=== PATIENT | male | born 1980 | race Caucasian/White ===

== ENCOUNTER 2021-04-01 16:03 | Outpatient (CLI) | payer OTHER | END 2021-04-01 16:04 | disposition home or self-care (01) | LOC: BICCT 16:03 | PROVIDERS: ATTEND Family Medicine | DX: E78.5 Hyperlipidemia, unspecified (principal); E78.00 Pure hypercholesterolemia, unspecified | CPT/HCPCS: 75571 ==

== ENCOUNTER 2021-12-26 08:02 | Outpatient (CLI) | payer OTHER | END 2021-12-26 08:03 | disposition home or self-care (01) | LOC: LABBT 08:02 | PROVIDERS: ATTEND Family Medicine | DX: Z01.810 Encounter for preprocedural cardiovascular examination (principal) | CPT/HCPCS: 93005; 93010 ==

== ENCOUNTER 2021-12-29 08:34 | Day surgery (SDC) | payer OTHER ==
[2021-12-28 13:45] VITALS: BMI 32.2
[2021-12-29] MEDS ORDERED: EPINEPHrine 1 MG/ML AMP ONE (10:52)
[2021-12-29] MEDS ORDERED: SUGAMMADEX SODIUM 200 MG/2 ML VIAL ONE ×2 (11:00→11:43)
[2021-12-29] MEDS ORDERED: fentaNYL PF 100 MCG/2 ML SYRINGE ONE (11:00)
== END 2021-12-29 13:26 | disposition home or self-care (01) ==
LOC: SDC 08:34
PROVIDERS: ATTEND Specialist
PROC: 0CBT8ZZ Excision of Right Vocal Cord, Via Natural or Artificial Opening Endoscopic (ICD-10-PCS; principal; 2021-12-29)
DX: J38.3 Other diseases of vocal cords (principal); K21.9 Gastro-esophageal reflux disease without esophagitis; E78.5 Hyperlipidemia, unspecified; E03.9 Hypothyroidism, unspecified; Z86.16 Personal history of COVID-19; Z79.890 Hormone replacement therapy; Z79.899 Other long term (current) drug therapy; Z88.0 Allergy status to penicillin; Z88.2 Allergy status to sulfonamides
CPT/HCPCS: J0171